=== PATIENT | female | born 1945 | race Caucasian/White ===

== ENCOUNTER → 2016-06-30 | Outpatient (CLI) | payer MEDICARE, BC, OTHER ==
[2015-10-02 19:18] VITALS: BP 146/67
[~2016-06-30] MED LIST: ALDACTONE 25MG25 MG PO; ALPHAMIN1000 MCG/M IM; AMITRIPTYLINE H10 M3; CRESTOR20 MG PO; FLONASE0.05 MG/AC NS; GLUCOPHAGE500 MG/TAB PO; IBUPROFEN800 MG PO; LANTUS PEN100 U/ML SC; LASIX 80MG TABL80 MG PO; LUMIGAN EYE GTTS OU; MYRBETRIQ25 MG PO; NEURONTIN100 MG PO; PRILOSEC 20MG20 MG PO; REGLAN 10MG10 MG/TAB PO; RELAFEN500 MG PO; SYNTHROID0.125 MG PO; SYSTANE0.3% OP; TUSSIONEX PENNKI5 ML PO; VICTOZA6 MG/ML SC; VITAMIN B11000 MCG/M IM; VITAMIN D50000 IU PO
== END ==
LOC: RAD 15:54
DX: M48.06 Spinal stenosis, lumbar region (principal); M54.16 Radiculopathy, lumbar region

== ENCOUNTER → 2016-11-10 | Outpatient (CLI) | payer MEDICARE, BC, OTHER ==
[2015-10-02 19:18] VITALS: BP 146/67
== END ==
LOC: LAB 11:58
DX: E11.9 Type 2 diabetes mellitus without complications (principal)

== ENCOUNTER → 2016-12-08 | Outpatient (CLI) | payer MEDICARE, BC, OTHER ==
[2015-10-02 19:18] VITALS: BP 146/67
== END ==
LOC: LAB 15:03
DX: E11.9 Type 2 diabetes mellitus without complications (principal)

== ENCOUNTER → 2017-05-22 | Outpatient (CLI) | payer MEDICARE, BC, OTHER ==
[2015-10-02 19:18] VITALS: BP 146/67
[2017-05-22 17:35] LABS: ALBUMIN 4.2 g/dL (3.5-5.0); BUN/CREATININE RATIO 21.9 (6.0-26.0); CALCIUM 9.9 mg/dL (8.4-10.2); POTASSIUM 4.3 mmol/L (3.6-5.0); TOTAL BILIRUBIN 0.3 mg/dL (0.2-1.3); TOTAL PROTEIN 7.9 g/dL (6.3-8.2)
== END ==
LOC: LAB 16:21
PROVIDERS: Internal Medicine
DX: M81.0 Age-related osteoporosis without current pathological fracture (principal); E03.4 Atrophy of thyroid (acquired)

== ENCOUNTER → 2017-06-16 | Outpatient (CLI) | payer MEDICARE, BC, OTHER ==
[~2017-06-16] VITALS: Ht 162.6 cm; Wt 79.1 kg
[~2017-06-16] MED LIST changes: +CALCIUM 600 MG-1 TAB PO; +COLACE100 M1 PO; +HYDROXYZINE HCL25 M1 PO; +LEADER MELATONIN5 MG PO; +LUMIGAN 2.5 ML2.5 M1 OP; +NAMZARIC 28 MG1 EACH PO; +NEURONTIN300 MG/CAP; +NORCO 325 MG-7.1 TA1 PO; +SYNTHROID RP0.1 MG PO
[2017-06-16 10:59] VITALS: BP 108/56
[2017-06-16 11:04] LABS: EOS # 0.5 (0.04-0.40); EOS % 5.4 % (1.0-5.0); HEMATOCRIT 35.5 % (37.0-47.0); HEMOGLOBIN 11.7 g/dL (12.5-16.0); MEAN CELL VOLUME 95 fl (78-100); MEAN CORPUSCULAR HEMOGLOBIN 32 pg (27-31); MEAN CORPUSCULAR HGB CONC 33 g/dL (33-37); MEAN PLATELET VOLUME 10.4 fl (7.4-10.4); MONO # 0.8 (0.20-0.80); NEU # 5.7 (1.40-6.50); PLATELET COUNT 164 K/mm3 (130-400); RED BLOOD COUNT 3.72 M/mm3 (4.10-5.30); WHITE BLOOD COUNT 9.1 K/mm3 (4.8-10.8)
[2017-06-16 11:16] LABS: ALBUMIN 3.8 g/dL (3.5-5.0); BUN/CREATININE RATIO 18.3 (6.0-26.0); CALCIUM 10.3 mg/dL (8.4-10.2); POTASSIUM 4.3 mmol/L (3.6-5.0); TOTAL BILIRUBIN 0.3 mg/dL (0.2-1.3)
[2017-06-16 11:18] LABS: PH-URINE 6.5 (5.0 - 8.0); URINE APPEARANCE CLOUDY; URINE BILIRUBIN NEGATIVE (NEGATIVE); URINE BLOOD 50 ery/uL (NEGATIVE); URINE COLOR YELLOW; URINE GLUCOSE NEGATIVE (NEGATIVE); URINE KETONE NEGATIVE (NEGATIVE); URINE LEUKOCYTE ESTERASE 2+ (NEGATIVE); URINE NITRATE POSITIVE (NEGATIVE); URINE PROTEIN(semi-quant) TRACE mg/dL (NEGATIVE); URINE UROBILINOGEN NORMAL (NORMAL); URINE WBC >50 /hpf (0-3)
== END ==
LOC: AMSURD 10:25
PROVIDERS: Internal Medicine
DX: Z01.818 Encounter for other preprocedural examination (principal); M17.0 Bilateral primary osteoarthritis of knee; E11.9 Type 2 diabetes mellitus without complications; N30.00 Acute cystitis without hematuria

== ENCOUNTER → 2017-06-22 | Outpatient (CLI) | payer MEDICARE, BC, OTHER ==
[2017-06-16 10:59] VITALS: BP 108/56
[2017-06-22 10:36] LABS: PH-URINE 6.5 (5.0 - 8.0); URINE APPEARANCE CLEAR; URINE BILIRUBIN NEGATIVE (NEGATIVE); URINE BLOOD NEGATIVE (NEGATIVE); URINE COLOR YELLOW; URINE GLUCOSE NEGATIVE (NEGATIVE); URINE KETONE NEGATIVE (NEGATIVE); URINE LEUKOCYTE ESTERASE NEGATIVE (NEGATIVE); URINE NITRATE NEGATIVE (NEGATIVE); URINE PROTEIN(semi-quant) NEGATIVE (NEGATIVE); URINE UROBILINOGEN NORMAL (NORMAL); URINE WBC 0-1 /hpf (0-3)
== END ==
LOC: LAB 09:46
PROVIDERS: Internal Medicine
DX: N30.00 Acute cystitis without hematuria (principal)

== ENCOUNTER → 2017-09-16 | Outpatient (CLI) | payer MEDICARE, BC, OTHER ==
[2017-06-16 10:59] VITALS: BP 108/56
[2017-09-16 20:46] LABS: EOS # 0.3 (0.04-0.40); EOS % 3.1 % (1.0-5.0); HEMATOCRIT 40.4 % (37.0-47.0); HEMOGLOBIN 13.7 g/dL (12.5-16.0); MEAN CELL VOLUME 93 fl (78-100); MEAN CORPUSCULAR HEMOGLOBIN 31 pg (27-31); MEAN CORPUSCULAR HGB CONC 34 g/dL (33-37); MEAN PLATELET VOLUME 11.7 fl (7.4-10.4); MONO # 0.8 (0.20-0.80); NEU # 6.4 (1.40-6.50); PLATELET COUNT 215 K/mm3 (130-400); RED BLOOD COUNT 4.36 M/mm3 (4.10-5.30); RED CELL DISTRIBUTION WIDTH 14.3 % (11.5-14.5); WHITE BLOOD COUNT 10.6 K/mm3 (4.8-10.8)
[2017-09-16 21:01] LABS: ALBUMIN 4.2 g/dL (3.5-5.0); BUN/CREATININE RATIO 19.5 (6.0-26.0); CALCIUM 10.1 mg/dL (8.4-10.2); POTASSIUM 4.3 mmol/L (3.6-5.0); TOTAL BILIRUBIN 0.5 mg/dL (0.2-1.3); TOTAL PROTEIN 7.6 g/dL (6.3-8.2)
[2017-09-16 22:09] LABS: ERYTHROCYTE SEDIMENTATION RATE 28 mm/hr (0-30)
[2017-09-16 22:10] LABS: PH-URINE 5.5 (5.0 - 8.0); URINE APPEARANCE HAZY; URINE COLOR YELLOW
[2017-09-16 22:29] LABS: URINE PROTEIN(semi-quant) TRACE mg/dL (NEGATIVE)
[2017-09-16 22:30] LABS: URINE BILIRUBIN NEGATIVE (NEGATIVE); URINE BLOOD NEGATIVE (NEGATIVE); URINE GLUCOSE NEGATIVE (NEGATIVE); URINE KETONE NEGATIVE (NEGATIVE); URINE LEUKOCYTE ESTERASE TRACE (NEGATIVE); URINE NITRATE NEGATIVE (NEGATIVE); URINE UROBILINOGEN NORMAL (NORMAL)
== END ==
LOC: LAB 17:14
PROVIDERS: Internal Medicine
DX: E11.9 Type 2 diabetes mellitus without complications (principal); E53.8 Deficiency of other specified B group vitamins; G62.9 Polyneuropathy, unspecified

== ENCOUNTER → 2018-11-23 | Outpatient (CLI) | payer MEDICARE, BC, OTHER ==
[2017-06-16 10:59] VITALS: BP 108/56
[2018-11-23 16:29] LABS: EOS # 0.4 (0.04-0.40); EOS % 3.4 % (1.0-5.0); HEMATOCRIT 37.8 % (37.0-47.0); HEMOGLOBIN 12.5 g/dL (12.5-16.0); LYMPH# 2.7 (1.50-4.00); MEAN CELL VOLUME 87 fl (78-100); MEAN CORPUSCULAR HEMOGLOBIN 29 pg (27-31); MEAN CORPUSCULAR HGB CONC 33 g/dL (33-37); MEAN PLATELET VOLUME 9.8 fl (7.4-10.4); NEU # 6.2 (1.40-6.50); PLATELET COUNT 221 K/mm3 (130-400); RED BLOOD COUNT 4.33 M/mm3 (4.10-5.30); RED CELL DISTRIBUTION WIDTH 14.5 % (11.5-14.5); WHITE BLOOD COUNT 10.2 K/mm3 (4.8-10.8)
[2018-11-23 16:38] LABS: POTASSIUM 4.2 mmol/L (3.5-5.1)
[2018-11-23 16:39] LABS: CALCIUM 9.4 mg/dL (8.3-10.5)
[2018-11-23 16:40] LABS: TOTAL PROTEIN 7.1 g/dL (6.2-8.1)
[2018-11-23 16:42] LABS: TOTAL BILIRUBIN 0.3 mg/dL (0.2-1.2)
[2018-11-23 16:47] LABS: MAGNESIUM 2.05 mg/dL (1.60-2.60)
[2018-11-23 17:13] LABS: URINE APPEARANCE CLEAR; URINE BILIRUBIN NEGATIVE (NEGATIVE); URINE BLOOD NEGATIVE (NEGATIVE); URINE COLOR YELLOW; URINE GLUCOSE NEGATIVE (NEGATIVE); URINE KETONE NEGATIVE (NEGATIVE); URINE NITRATE NEGATIVE (NEGATIVE); URINE PROTEIN(semi-quant) TRACE mg/dL (NEGATIVE); URINE UROBILINOGEN NORMAL (NORMAL)
[2018-11-23 17:14] LABS: URINE LEUKOCYTE ESTERASE 1+ (NEGATIVE); URINE MUCUS PRESENT (NOT PRESENT); URINE WBC 16-30 /hpf (0-3)
[2018-11-23 18:08] LABS: ERYTHROCYTE SEDIMENTATION RATE 25 mm/hr (0-30)
== END ==
LOC: LAB 16:04
PROVIDERS: Internal Medicine
DX: E11.42 Type 2 diabetes mellitus with diabetic polyneuropathy (principal); M81.0 Age-related osteoporosis without current pathological fracture; E53.8 Deficiency of other specified B group vitamins

== ENCOUNTER → 2020-03-13 | Outpatient (CLI) | payer MEDICARE, BC ==
[2017-06-16 10:59] VITALS: BP 108/56
[2020-03-13 10:59] LABS: EOS # 0.4 (0.04-0.40); EOS % 5.6 % (1.0-5.0); HEMATOCRIT 36.5 % (37.0-47.0); HEMOGLOBIN 11.3 g/dL (12.5-16.0); LYMPH# 1.6 (1.50-4.00); MEAN CELL VOLUME 92 fl (78-100); MEAN CORPUSCULAR HEMOGLOBIN 28 pg (27-31); MEAN CORPUSCULAR HGB CONC 31 g/dL (33-37); MEAN PLATELET VOLUME 10.1 fl (7.4-10.4); MONO # 0.5 (0.20-0.80); NEU # 4.2 (1.40-6.50); PLATELET COUNT 192 K/mm3 (130-400); RED BLOOD COUNT 3.98 M/mm3 (4.10-5.30); RED CELL DISTRIBUTION WIDTH 14.6 % (11.5-14.5); WHITE BLOOD COUNT 6.8 K/mm3 (4.8-10.8)
[2020-03-13 11:06] LABS: ALBUMIN 3.8 g/dL (3.4-4.8); POTASSIUM 4.4 mmol/L (3.5-5.1)
[2020-03-13 11:07] LABS: CALCIUM 9.1 mg/dL (8.3-10.5)
[2020-03-13 11:08] LABS: TOTAL PROTEIN 6.4 g/dL (6.2-8.1)
[2020-03-13 11:10] LABS: TOTAL BILIRUBIN 0.5 mg/dL (0.2-1.2)
[2020-03-13 12:51] LABS: ERYTHROCYTE SEDIMENTATION RATE 20 mm/hr (0-30)
== END ==
LOC: LAB 10:23
PROVIDERS: Internal Medicine
DX: E11.9 Type 2 diabetes mellitus without complications (principal); K90.9 Intestinal malabsorption, unspecified

== ENCOUNTER → 2020-07-03 | Outpatient (CLI) | payer MEDICARE, BC ==
[2017-06-16 10:59] VITALS: BP 108/56
== END ==
LOC: RAD 07:19
DX: M41.86 Other forms of scoliosis, lumbar region (principal); M51.36 Other intervertebral disc degeneration, lumbar region; M48.061 Spinal stenosis, lumbar region without neurogenic claudication; M51.26 Other intervertebral disc displacement, lumbar region; M54.16 Radiculopathy, lumbar region

== ENCOUNTER → 2020-11-06 | Outpatient (CLI) | payer MEDICARE, BC ==
[2020-11-06 15:46] LABS: BASO # 0.04 (0.02-0.10); EOS % 4.7 % (1.0-5.0); HEMATOCRIT 40.7 % (37.0-47.0); MEAN CELL VOLUME 91 fl (78-100); MEAN CORPUSCULAR HEMOGLOBIN 29 pg (27-31); MEAN CORPUSCULAR HGB CONC 32 g/dL (33-37); MEAN PLATELET VOLUME 9.3 fl (7.4-10.4); MONO # 0.72 (0.20-0.80); NEU # 5.46 (1.40-6.50); PLATELET COUNT 230 K/mm3 (130-400); RED BLOOD COUNT 4.46 M/mm3 (4.10-5.30); RED CELL DISTRIBUTION WIDTH 14.1 % (11.5-14.5); WHITE BLOOD COUNT 8.4 K/mm3 (4.8-10.8)
[2020-11-06 15:54] LABS: ALBUMIN 3.9 g/dL (3.4-4.8)
[2020-11-06 15:56] LABS: CALCIUM 10.5 mg/dL (8.3-10.5)
[2020-11-06 15:57] LABS: TOTAL PROTEIN 7.1 g/dL (6.2-8.1)
[2020-11-06 15:59] LABS: TOTAL BILIRUBIN 0.3 mg/dL (0.2-1.2)
[2020-11-06 16:04] LABS: MAGNESIUM 1.83 mg/dL (1.60-2.60)
[2020-11-06 17:17] LABS: ERYTHROCYTE SEDIMENTATION RATE 33 mm/hr (0-30)
== END ==
LOC: LAB 15:27
PROVIDERS: Internal Medicine
DX: K90.9 Intestinal malabsorption, unspecified (principal); E11.9 Type 2 diabetes mellitus without complications; E03.4 Atrophy of thyroid (acquired); L97.409 Non-pressure chronic ulcer of unspecified heel and midfoot with unspecified severity

== ENCOUNTER → 2020-12-10 | Outpatient (CLI) | payer MEDICARE, BC ==
[2020-12-10 16:11] LABS: URINE APPEARANCE HAZY; URINE BILIRUBIN NEGATIVE (NEGATIVE); URINE BLOOD 50 ery/uL (NEGATIVE); URINE COLOR YELLOW; URINE GLUCOSE NEGATIVE (NEGATIVE); URINE KETONE NEGATIVE (NEGATIVE); URINE LEUKOCYTE ESTERASE TRACE (NEGATIVE); URINE NITRATE NEGATIVE (NEGATIVE); URINE PROTEIN(semi-quant) TRACE mg/dL (NEGATIVE); URINE UROBILINOGEN NORMAL (NORMAL)
[2020-12-10 16:12] LABS: URINE MUCUS PRESENT (NOT PRESENT)
== END ==
LOC: LAB 15:25
PROVIDERS: Internal Medicine
DX: K90.9 Intestinal malabsorption, unspecified (principal)

== ENCOUNTER → 2021-06-24 | Outpatient (CLI) | payer MEDICARE, BC ==
[2021-06-24 16:58] LABS: BASO # 0.04 K/mm3 (0.02-0.10); EOS # 0.23 K/mm3 (0.04-0.40); HEMOGLOBIN 12.3 g/dL (12.5-16.0); LYMPH# 1.87 K/mm3 (1.50-4.00); MEAN CELL VOLUME 93 fl (78-100); MEAN CORPUSCULAR HEMOGLOBIN 29 pg (27-31); MEAN CORPUSCULAR HGB CONC 32 g/dL (33-37); MEAN PLATELET VOLUME 9.3 fl (7.4-10.4); MONO # 0.49 K/mm3 (0.20-0.80); NEU # 5.11 K/mm3 (1.40-6.50); PLATELET COUNT 218 K/mm3 (130-400); RED BLOOD COUNT 4.21 M/mm3 (4.10-5.30); RED CELL DISTRIBUTION WIDTH 14.3 % (11.5-14.5); WHITE BLOOD COUNT 7.8 K/mm3 (4.8-10.8)
[2021-06-24 17:05] LABS: ALBUMIN 3.9 g/dL (3.4-4.8); POTASSIUM 4.4 mmol/L (3.5-5.1)
[2021-06-24 17:06] LABS: CALCIUM 9.7 mg/dL (8.3-10.5)
[2021-06-24 17:09] LABS: TOTAL BILIRUBIN 0.3 mg/dL (0.2-1.2)
[2021-06-24 17:14] LABS: MAGNESIUM 1.94 mg/dL (1.60-2.60)
== END ==
LOC: LAB 16:38
PROVIDERS: Internal Medicine
DX: L02.416 Cutaneous abscess of left lower limb (principal); M54.16 Radiculopathy, lumbar region; M81.0 Age-related osteoporosis without current pathological fracture; E03.4 Atrophy of thyroid (acquired); E53.8 Deficiency of other specified B group vitamins; E11.9 Type 2 diabetes mellitus without complications; K90.9 Intestinal malabsorption, unspecified

== ENCOUNTER → 2021-11-04 | Outpatient (CLI) | payer MEDICARE, BC | LOC: LAB 15:34 | DX: M81.0 Age-related osteoporosis without current pathological fracture (principal); L02.416 Cutaneous abscess of left lower limb; M54.16 Radiculopathy, lumbar region; J45.20 Mild intermittent asthma, uncomplicated; E03.4 Atrophy of thyroid (acquired); F03.90 Unspecified dementia, unspecified severity, without behavioral disturbance, psychotic disturbance, mood disturbance, and anxiety; E53.8 Deficiency of other specified B group vitamins; F32.9 Major depressive disorder, single episode, unspecified; K90.9 Intestinal malabsorption, unspecified; E11.9 Type 2 diabetes mellitus without complications ==